=== PATIENT | female | born 1960 | race Two or more races ===

== ENCOUNTER 2018-12-04 12:23 | Emergency (ER) | payer BC, OTHER ==
--- NOTE | 2018-12-04 12:28 | UC ---
Dental HPI - HPI Summary HPI Summary: 57 yo female presents with dental pain. She tells me that she knows she has a bad tooth in the left upper area that she has been told needs a root canal. She has had dental abscess here in the past - most recently about a month ago and was on PCN. Her symptoms resolved. This morning she woke up and noticed swelling to her left upper cheek with mild pain. She is eating and drinking well. Denies fever or chills. She is in the process of scheduling for her root canal. - History of Current Complaint Stated Complaint: DENTAL CONCERN Time Seen by Provider: 12/04/18 12:28 Hx Obtained From: Patient Hx Last Menstrual Period: 9 yrs Onset/Duration: Sudden Onset Severity: Mild Pain Intensity: 3 - Allergies/Home Medications Allergies/Adverse Reactions: Allergies Allergy/AdvReac Type Severity Reaction Status Date / Time No Known Allergies Allergy Verified 12/04/18 12:47 Home Medications: Home Medications Omeprazole CAP (NF) [Prilosec CAP* 20 MG] 20 mg PO DAILY PRN 12/04/18 [History Confirmed 12/04/18] Venlafaxine EXT RELEASE CAP* [Effexor Xr CAP*] 37.5 mg PO DAILY 12/04/18 [ History Confirmed 12/04/18] PMH/Surg Hx/FS Hx/Imm Hx GI/ History: Gastroesophageal Reflux Psychological History: Anxiety, Depression - Surgical History Surgical History: None - Family History Known Family History: Positive: Hypertension, Diabetes - Social History Lives: With Family Alcohol Use: Occasionally Substance Use Type: None Smoking Status (MU): Never Smoked Tobacco - Immunization History Most Recent Influenza Vaccination: [id number] Review of Systems All Other Systems Reviewed And Are Negative: Yes Constitutional: Positive: Negative Skin: Positive: Negative Eyes: Positive: Negative ENT: Positive: Dental Pain Respiratory: Positive: Negative Cardiovascular: Positive: Negative Neurovascular: Positive: Negative Neurological: Positive: Negative Psychological: Positive: Negative Physical Exam - Summary Physical Exam Summary: GENERAL: NAD. WDWN. No pain distress. SKIN: No rashes, sores, lesions, or open wounds. HEENT: Head: AT/NC Nose: Nasal mucosa pink and moist. NTTP maxillary and frontal sinus. Throat: Posterior oropharynx without exudates, erythema, or tonsillar enlargement. Uvula midline. NECK: Supple. Nontender. No lymphadenopathy. CHEST: No accessory muscle use. Breathing comfortably and in no distress. CV: Pulses intact. Cap refill <2seconds NEURO: Alert. PSYCH: Age appropriate behavior. Triage Information Reviewed: Yes Vital Signs: Vital Signs: Temp Pulse Resp BP Pulse Ox 98.7 F 79 16 146/84 100 12/04/18 12:46 12/04/18 12:46 12/04/18 12:46 12/04/18 12:46 12/04/18 12:46 Vital Signs Reviewed: Yes Dental: Positive: Percussion Tenderness @ - Tooth #14, Other: - Mild cheek edema about area of Tooth #14 with fluctuance.. Negative: Gross Decay/Caries @ , Dental Fracture @, Cellulitis @, Cervical Lymphadenopathy, Bleeding Dental Complaint Course/Dx - Course Course Of Treatment: Tooth #14 abscess. - Differential Dx/Diagnosis Provider Diagnosis: Dental abscess Discharge - Sign-Out/Discharge Documenting (check all that apply): Patient Departure All imaging exams completed and their final reports reviewed: No Studies - Discharge Plan Condition: Stable Disposition: HOME Prescriptions: Clindamycin HCl 300 mg PO TID #21 capsule Patient Education Materials: Dental Abscess (ED) Referrals: Eileen Juarez MD [Primary Care Provider] - Additional Instructions: If you develop a fever, shortness of breath, chest pain, new or worsening symptoms - please call your PCP or go to the ED immediately. Please follow up with your dentist/oral surgeon for further treatment of your tooth - Billing Disposition and Condition Condition: STABLE Disposition: Home
[2018-12-04 12:50] VITALS: BP 146/84
== END 2018-12-04 12:51 | disposition home or self-care (01) ==
LOC: UCCORT 12:23
DX: K04.7 Periapical abscess without sinus (principal); K21.9 Gastro-esophageal reflux disease without esophagitis; F41.9 Anxiety disorder, unspecified; F32.9 Major depressive disorder, single episode, unspecified
CPT/HCPCS: 99212; G0463